=== PATIENT | male | born 1995 | race Caucasian/White ===

== ENCOUNTER → 2017-02-18 | Outpatient (CLI) | payer OTHER, MEDICAID | LOC: CIMAGING 15:35 | PROVIDERS: ATTEND Internal Medicine Gastroenterology | DX: K56.41 Fecal impaction (principal) | CPT/HCPCS: 74022-PO ==

== ENCOUNTER → 2017-02-22 | Outpatient (CLI) | payer OTHER, MEDICAID | LOC: CIMAGING 08:36 | PROVIDERS: ATTEND Internal Medicine Gastroenterology | DX: K56.41 Fecal impaction (principal) | CPT/HCPCS: 74020-PO ==

== ENCOUNTER → 2017-03-03 | Outpatient (CLI) | payer OTHER, MEDICAID | LOC: CIMAGING 08:03 | PROVIDERS: ATTEND Internal Medicine Gastroenterology | DX: R14.0 Abdominal distension (gaseous) (principal); M41.85 Other forms of scoliosis, thoracolumbar region | CPT/HCPCS: 74020-PO ==